=== PATIENT | female | born 1960 | race Caucasian/White ===

== ENCOUNTER → 2023-09-26 08:03 | Outpatient (REF) | payer BC, SELFPAY ==
--- NOTE | 2023-09-26 08:12 | CA_ITS ---
Transthoracic Echocardiogram Patient (Last, First, Middle): Bebeto Duran M Gender: Female Date of : 1960 Age: 63 Procedure Date: 09/26/2023 Procedure Type: Transthoracic Echocardiogram Location: OP Height: 167. cm Weight: 57.61 kg BSA: 1.64 m2 Heart Rate: 60 bpm BP: 125 / 85 mmHg Shirt Cleaner: MAXINE Referring MD: Rose Lopez MD Symptoms: I35.0 AVD Study Quality: Fair ECG Rhythm: Sinus Conclusions: - The left ventricular systolic function is normal. The visually estimated ejection fraction is >70%. - No obvious valvular pathology seen on this study. - There is mild dilatation of the ascending aorta measuring 3.90 cm. Findings Left Ventricle Normal left ventricular cavity size. There is normal left ventricular wall thickness. The left ventricular systolic function is normal. The visually estimated ejection fraction is >70%. There is no evidence of regional wall motion abnormalities. Diastolic function is normal for age. LV peak GLS 18.8%. Right Ventricle Normal right ventricular cavity size and systolic function. Atria Both atria are normal in size. Aortic Valve There is a normal trileaflet aortic valve. There is mild calcification of the aortic valve. There is no aortic valve stenosis. There is no aortic valve regurgitation. Mitral Valve The mitral valve appears normal. There is no mitral valve regurgitation. There is no mitral valve stenosis. Pulmonic Valve The pulmonic valve is likely normal. Tricuspid Valve Normal tricuspid valve structure. There is mild tricuspid valve regurgitation. There is no evidence of pulmonary hypertension. Great Vessels The asc aorta is normal in size. There is mild dilatation of the ascending aorta measuring 3.90 cm. Venous The inferior vena cava is normal in size and collapses greater than 50% with inspiration. Pericardium/Pleural There is no evidence of pericardial effusion. Prior Study Comparison No prior study available for comparison. Recommendations, Care & Conclusions No obvious valvular pathology seen on this study. Measurements 2D Linear Measurements IVSd: 0.77 0.6-0.9/0.6-1.0 cm LVIDd: 4.36 3.9-5.3/4.2-5.9 cm LVIDd Index: 2.66 2.4-3.2/2.2-3.1 cm/m2 LVIDs: 3.03 2.0-3.6 cm LVPWd: 0.84 0.7-1.1 cm LA Diam: 2.90 2.7-3.8/3.0-4.0 cm LAIDs Index: 1.77 1.5-2.3 cm/m2 LV Mass: 135.31 67-162/88-224 g LV Mass Index: 82.51 43-95/49-115 g/m2 LVOT Diam: 2.00 3.0+(-)1.3 cm 2D Systolic Function EF 4C: 68.00 >55% EF 2C: 78.40 >55% EF BiP: 74.10 >55% Mitral Valve MV Pk E: 0.78 MV PK A: 0.59 MV Decel Time: 214.00 E/A: 1.30 E'Lateral: 8.81 E'Medial: 6.85 E/E' Med: 11.40 E/E' Lat: 8.90 PHT: 63.00 MVA PHT: 3.49 Decel [place]: 3.67 Aortic Valve AoV Pk Missael: 2.33 AoV Mn Missael: 1.65 AoV VTI: 0.55 AoV Pk Grad: 22.00 Aov Mn Grad: 12.00 DONALD Cont.VTI: 1.45 LVOT LVOT Pk Missael: 1.10 LVOT Mn Missael: 0.80 LVOT VTI: 0.25 LVOT Pk Grad: 5.00 LVOT Mn Grad: 3.00 LVOT Diam: 2.00 LVOT Area: 3.14 Diastolic Function MV Pk E: 0.78 MV Pk A: 0.59 E/A: 1.30 E'Medial: 6.85 E/E' Med: 11.40 E' Laterial: 8.81 E/E' Lat: 8.90 Right Ventricle TAPSE (mm): 21.80 TVS' Missael: 8.92 Tricuspid Valve TR Pk Missael: 1.85 TR Pk Grad: 14.00 RA Press: 3.00 RVSP: 17.00 Great Vessels Aorta Sinus of Valsalva: 3.30 2.0-3.5 cm Ao Asc: 3.90 2.1-3.4 cm Ao Arch: 2.30 Pulmonary Valve PV Pk Missael: 0.83 Peak PV Grad: 3.00 Updated in Other Vendor System with Status of Final Brian Granger MD electronically signed on 09/27/2023 7:38:14 AM with status of Final
== END ==
LOC: HO.CARD 08:03
PROVIDERS: PCP Family Medicine; Visit Provider Internal Medicine Cardiovascular Disease
DX: I35.0 Nonrheumatic aortic (valve) stenosis (principal)
CPT/HCPCS: 93306

== ENCOUNTER → 2023-09-26 08:12 | Outpatient (BNV) | payer BC, SELFPAY | PROVIDERS: PCP Family Medicine; Visit Provider Internal Medicine | DX: I35.8 Other nonrheumatic aortic valve disorders (principal); I36.1 Nonrheumatic tricuspid (valve) insufficiency | CPT/HCPCS: 93306 ==